=== PATIENT | female | born 1980 | race Caucasian/White ===

== ENCOUNTER → 2018-03-09 09:48 | Outpatient (CLI) | payer OTHER, SELFPAY ==
--- NOTE | 2018-03-09 09:50 | XR_ITS ---
XR foot wt bearing LT 3V HISTORY: Follow-up fracture ITS.REASON: Fracture/dislocation follow-up ORDERING PHYSICIAN: Michelle Arreola DPM PATIENT AGE: 38 years FINDINGS healing fractures are present involving the mid shaft of the fourth and fifth metatarsals. These are nondisplaced. There is callus formation developing. The fourth metatarsal fracture was occult on the previous exam but there is now evidence of callus formation as well as a faint transverse lucency at the junction of the mid and distal one third of the fourth metatarsal. Healing fractures also present at the mid shaft of the fifth metatarsal. The fracture line is more prominent with some developing callus formation and there is minimal medial angulation of the distal fracture fragment. IMPRESSION: Healing fourth and fifth metatarsal fractures nondisplaced
== END ==
PROVIDERS: PCP Family Medicine; Visit Provider Podiatrist
DX: S92.352A Displaced fracture of fifth metatarsal bone, left foot, initial encounter for closed fracture (principal); T14.8XXA Other injury of unspecified body region, initial encounter
CPT/HCPCS: 73630

== ENCOUNTER → 2018-03-22 14:43 | Outpatient (CLI) | payer OTHER, SELFPAY ==
--- NOTE | 2018-03-22 14:45 | XR_ITS ---
XR foot wt bearing LT 3V HISTORY: Follow-up fracture ITS.REASON: fracture follow-up ORDERING PHYSICIAN: Michelle Arreola DPM PATIENT AGE: 38 years COMPARISON: 03/09/2018 FINDINGS: Healing nondisplaced fracture involves the mid shaft of the fourth and fifth metatarsals with callus formation. There remains good alignment. IMPRESSION: Healing fourth and fifth metatarsal fractures with good alignment
== END ==
PROVIDERS: PCP Family Medicine; Visit Provider Podiatrist
DX: S92.355A Nondisplaced fracture of fifth metatarsal bone, left foot, initial encounter for closed fracture (principal); S92.302A Fracture of unspecified metatarsal bone(s), left foot, initial encounter for closed fracture
CPT/HCPCS: 73630

== ENCOUNTER → 2018-04-20 10:05 | Outpatient (CLI) | payer OTHER, SELFPAY ==
--- NOTE | 2018-04-20 10:07 | XR_ITS ---
XR foot wt bearing LT 3V HISTORY: Follow-up fracture ITS.REASON: Fracture follow-up ORDERING PHYSICIAN: Michelle Arreola DPM PATIENT AGE: 38 years COMPARISON: 03/22/2018 FINDINGS: Healing nondisplaced mid shaft fractures involving the fourth and fifth metatarsals. The fracture lines are still visible. There has been increase in callus formation. IMPRESSION: Good alignment of healing fractures fourth and fifth metatarsals
== END ==
PROVIDERS: PCP Family Medicine; Visit Provider Podiatrist
DX: S92.355D Nondisplaced fracture of fifth metatarsal bone, left foot, subsequent encounter for fracture with routine healing (principal); S92.302D Fracture of unspecified metatarsal bone(s), left foot, subsequent encounter for fracture with routine healing; T14.8XXA Other injury of unspecified body region, initial encounter
CPT/HCPCS: 73630

== ENCOUNTER → 2018-04-20 17:43 | Outpatient (CLI) | payer OTHER, SELFPAY | PROVIDERS: Visit Provider Podiatrist | DX: L60.8 Other nail disorders (principal) | CPT/HCPCS: 87102; 87206; 87220 ==

== ENCOUNTER → 2018-05-18 08:57 | Outpatient (CLI) | payer OTHER, SELFPAY ==
--- NOTE | 2018-05-18 09:01 | XR_ITS ---
XR foot wt bearing LT 3V HISTORY: ITS.REASON: fracture follow-up ORDERING PHYSICIAN: Michelle Arreola DPM PATIENT AGE: 38 years COMPARISON: 04/20/2018 FINDINGS: There are healing fractures involving the midshaft of the fifth metatarsal in the junction of the mid and distal one third shaft of the fourth metatarsal with callus formation. The fracture lines are becoming less appear but are still visible. There is good alignment with no significant displacement. IMPRESSION: Healing nondisplaced fourth and fifth metatarsal fractures
== END ==
PROVIDERS: PCP Family Medicine; Visit Provider Podiatrist
DX: S92.302A Fracture of unspecified metatarsal bone(s), left foot, initial encounter for closed fracture (principal); S92.352A Displaced fracture of fifth metatarsal bone, left foot, initial encounter for closed fracture; T14.8XXA Other injury of unspecified body region, initial encounter
CPT/HCPCS: 73630

== ENCOUNTER → 2018-07-06 10:16 | Outpatient (CLI) | payer OTHER, SELFPAY ==
--- NOTE | 2018-07-06 10:19 | XR_ITS ---
XR foot wt bearing LT 3V HISTORY: Follow-up fracture ITS.REASON: pain ORDERING PHYSICIAN: Michelle Arreola DPM PATIENT AGE: 38 years COMPARISON: 05/18/2018 FINDINGS: There is a healing midshaft fifth metatarsal fracture. Fracture line is less apparent and there is increasing callus formation. There is good alignment. IMPRESSION: Healing nondisplaced mid shaft fifth metatarsal fracture
== END ==
PROVIDERS: PCP Family Medicine; Visit Provider Podiatrist
DX: S92.355D Nondisplaced fracture of fifth metatarsal bone, left foot, subsequent encounter for fracture with routine healing (principal)
CPT/HCPCS: 73630

== ENCOUNTER → 2019-01-17 10:08 | Outpatient (CLI) | payer OTHER, SELFPAY ==
--- NOTE | 2019-01-17 10:15 | US_ITS ---
PROCEDURE: US THYROID CLINICAL INDICATION: ACQUIRED HYPOTHYROIDISM,RT THYROID NODULE COMPARISON: No exams were available for comparison FINDINGS: Right lobe: 3.2 x 1.2 x 1.3 cm. There is diffuse heterogeneous echogenicity with a nodular appearance of the thyroid gland. Largest nodule on the right is 14 x 8 mm. This nodule is heterogeneous in echogenicity with smooth margins. And 11 x 7 mm nodular area is present in the upper pole less well-defined and may only represent heterogeneous echogenicity. Left lobe: 2.8 x 0.8 x 1.2 cm with heterogeneous echogenicity. 4 mm hyperechoic nodules present on the lower pole Isthmus: Unremarkable Additional findings: IMPRESSION: Multinodular appearance of the thyroid gland with the largest nodule in the mid polar region on the right at 14 x 8 mm. Recommend six-month follow-up to confirm short term stability. Dictated by: Tanner Gregory MD 01/17/2019 16:12 Electronically signed by Tanner Gregory MD in [place] 01/17/2019 16:12
== END ==
PROVIDERS: PCP Family Medicine; Visit Provider Family Medicine
DX: E03.9 Hypothyroidism, unspecified (principal); E04.1 Nontoxic single thyroid nodule
CPT/HCPCS: 76536

== ENCOUNTER → 2019-07-11 15:11 | Outpatient (CLI) | payer BC, SELFPAY ==
--- NOTE | 2019-07-11 | US_ITS ---
PROCEDURE: US THYROID CLINICAL INDICATION: Follow-up thyroid nodules COMPARISON: US THYROID from 01/17/2019 FINDINGS: The right lobe is 2.9 x 1.2 x 1.1 cm. There is heterogeneous echogenicity. 8 x 4 mm isoechoic nodule upper pole unchanged. 11 x 7 mm isoechoic nodule mid pole unchanged. 7 x 5 mm slightly hyperechoic nodule lower pole unchanged. The left lobe is 2.7 x 0.8 x 1 cm with heterogeneous echogenicity. Hypoechoic nodule lower pole at 4 mm unchanged. IMPRESSION: No change in the heterogeneous appearance of the thyroid gland with stable bilateral thyroid nodules Dictated by: Tanner Gregory MD 07/12/2019 03:51 Electronically signed by Tanner Gregory MD in [place] 07/12/2019 03:51
== END ==
PROVIDERS: PCP Family Medicine; Visit Provider Family Medicine
DX: E04.1 Nontoxic single thyroid nodule (principal)
CPT/HCPCS: 76536